=== PATIENT | female | born 1980 | race Caucasian/White ===

== ENCOUNTER 2019-05-17 13:27 | Emergency (ER) | payer OTHER ==
[~2019-05-17] VITALS: Ht 157.5 cm; Wt 72.1 kg
[2019-05-17 13:45] VITALS: Ht 157.5 cm; Wt 72.1 kg
[2019-05-17 14:54] LABS: UA SPECIFIC GRAVITY 1.025 (1.005-1.035); microscopic required? YES; urine erythrocyte 1+ (NEGATIVE)
[2019-05-17 15:16] VITALS: BP 129/83
== END 2019-05-17 15:34 | disposition home or self-care (01) ==
LOC: ED 13:27
PROVIDERS: Emergency Medicine
DX: M54.5 Low back pain (principal); R11.0 Nausea
CPT/HCPCS: 87491; 87591; J0780; J1885; J3010